=== PATIENT | female | born 1955 | race Caucasian/White ===

== ENCOUNTER 2019-06-03 12:19 | Outpatient (CLI) | payer OTHER | END 2019-06-03 18:44 | disposition home or self-care (01) | LOC: SUS 12:19 → EDBD 12:19 → SUS 18:44 | PROVIDERS: ATTEND Orthopaedic Surgery | DX: M79.89 Other specified soft tissue disorders (principal); Z09 Encounter for follow-up examination after completed treatment for conditions other than malignant neoplasm; Z96.659 Presence of unspecified artificial knee joint | CPT/HCPCS: 93971 ==

== ENCOUNTER 2022-10-25 05:30 | Day surgery (SDC) | payer OTHER ==
[~2022-10-25] VITALS: Ht 157.5 cm; Wt 88.2 kg
[2022-10-25] MEDS ORDERED: PROPOFOL 200MG/ 20ML VIAL (DIPRIVAN) IV ONE (09:01)
[2022-10-25] MEDS ORDERED: LIDOCAINE 1% 10 MG/ML, 20 ML MDV ONE (09:01)
[2022-10-25] MEDS ORDERED: LR 1,000 ML IV.SOLN IV ONE (09:01)
[2022-10-25 10:26] VITALS: BP_SYST 140
== END 2022-10-25 09:50 | disposition home or self-care (01) ==
LOC: SDS 05:30 → SMU 05:30 → SDS 09:50
PROVIDERS: ATTEND Internal Medicine Gastroenterology
DX: K62.5 Hemorrhage of anus and rectum (principal); D12.5 Benign neoplasm of sigmoid colon; K57.30 Diverticulosis of large intestine without perforation or abscess without bleeding; K64.9 Unspecified hemorrhoids; K21.9 Gastro-esophageal reflux disease without esophagitis; F32.A Depression, unspecified; I10 Essential (primary) hypertension; E11.9 Type 2 diabetes mellitus without complications; M79.7 Fibromyalgia; Z88.1 Allergy status to other antibiotic agents; Z88.5 Allergy status to narcotic agent; Z79.899 Other long term (current) drug therapy; Z20.822 Contact with and (suspected) exposure to COVID-19
CPT/HCPCS: 45385; 87426; 82962; 36415; 88305; 93005; J2001; J2704; J7120